=== PATIENT | male | born 1995 | race African-American/Black ===

== ENCOUNTER 2018-03-02 12:56 | Emergency (ER) | payer BC ==
--- NOTE | 2018-03-02 14:49 | EDPHYS ---
Physician Documentation [facility] Name: Kole Lock Age: 22 yrs Sex: Male : 1995 Arrival Date: 03/02/2018 Time: 12:59 Bed 24 Private MD: out of town, doctor ED Physician Jonn Gregorio HPI: 03/02 14:25 This 22 yrs old Black Male presents to ER via Ambulatory with complaints of Sore Throat.snw 14:25 The patient presents with sore throat. The patient describes throat pain as raw, snw scratchy. Onset: The symptoms/episode began/occurred suddenly, yesterday. Associated signs and symptoms: The patient has no apparent associated signs or symptoms. It is unknown whether or not the patient has had similar symptoms in the past. It is unknown whether or not the patient has recently seen a physician. Historical: - Allergies: 14:01 No Known Allergies; aa5 - PMHx: 14: None; aa5 - PSHx: 14: None; aa5 - Immunization history:: Adult Immunizations up to date. - Social history:: Smoking status: Patient uses tobacco products, denies chronic smoking, but will smoke occasionally. - Ebola Screening: : No symptoms or risks identified at this time. ROS: 14:25 Constitutional: Negative for fever, chills, and weight loss, Eyes: Negative for injury, snw pain, redness, and discharge, Neck: Negative for injury, pain, and swelling, Cardiovascular: Negative for chest pain, palpitations, and edema, Respiratory: Negative for shortness of breath, cough, wheezing, and pleuritic chest pain, Abdomen/GI: Negative for abdominal pain, nausea, vomiting, diarrhea, and constipation, Back: Negative for injury and pain, : Negative for injury, bleeding, discharge, and swelling, MS/Extremity: Negative for injury and deformity, Skin: Negative for injury, rash, and discoloration, Neuro: Negative for headache, weakness, numbness, tingling, and seizure, Psych: Negative for depression, anxiety, suicide ideation, homicidal ideation, and hallucinations. 14:25 ENT: Positive for sore throat. Exam: 14:24 Constitutional: This is a well developed, well nourished patient who is awake, alert, snw and in no acute distress. Head/Face: Normocephalic, atraumatic. Eyes: Pupils equal round and reactive to light, extra-ocular motions intact. Lids and lashes normal. Conjunctiva and sclera are non-icteric and not injected. Cornea within normal limits. Periorbital areas with no swelling, redness, or edema. Neck: Trachea midline, no thyromegaly or masses palpated, and no cervical lymphadenopathy. Supple, full range of motion without nuchal rigidity, or vertebral point tenderness. No Meningismus. Chest/axilla: Normal chest wall appearance and motion. Nontender with no deformity. No lesions are appreciated. Cardiovascular: Regular rate and rhythm with a normal S1 and S2. No gallops, murmurs, or rubs. Normal PMI, no JVD. No pulse deficits. Respiratory: Lungs have equal breath sounds bilaterally, clear to auscultation and percussion. No rales, rhonchi or wheezes noted. No increased work of breathing, no retractions or nasal flaring. Abdomen/GI: Soft, non-tender, with normal bowel sounds. No distension or tympany. No guarding or rebound. No evidence of tenderness throughout. Back: No spinal tenderness. No costovertebral tenderness. Full range of motion. Skin: Warm, dry with normal turgor. Normal color with no rashes, no lesions, and no evidence of cellulitis. MS/ Extremity: Pulses equal, no cyanosis. Neurovascular intact. Full, normal range of motion. Neuro: Awake and alert, GCS 15, oriented to person, place, time, and situation. Cranial nerves II-XII grossly intact. Motor strength 5/5 in all extremities. Sensory grossly intact. Cerebellar exam normal. Normal gait. Psych: Awake, alert, with orientation to person, place and time. Behavior, mood, and affect are within normal limits. 14:24 ENT: External ear(s): are unremarkable, Ear canal(s): are normal, TM's: are normal, Nose: is normal, Mouth: is normal, Posterior pharynx: Uvula: erythema, Voice: is normal. Vital Signs: 14:01 BP 142 / 82; Pulse 71; Resp 16 S; Temp 97.0(TE); Pulse Ox 100% on R/A; Weight 114.76 kg aa5 (R); Height 5 ft. 9 in. (175.26 cm) (R); Pain 0/10; 15:10 BP 138 / 99; Pulse 69; Resp 17; Pulse Ox 100% on R/A; tl3 14:01 Body Mass Index 37.36 (114.76 kg, 175.26 cm) aa5 MDM: 14:07 Patient medically screened. snw 14:57 Data reviewed: vital signs, nurses notes. Data interpreted: Pulse oximetry: on room air snw is 100 %. Interpretation: normal. Counseling: I had a detailed discussion with the patient and/or guardian regarding: the historical points, exam findings, and any diagnostic results supporting the discharge/admit diagnosis, the presence of at least one elevated blood pressure reading (>120/80) during this emergency department visit, lab results, the need for outpatient follow up, to return to the emergency department if symptoms worsen or persist or if there are any questions or concerns that arise at home. Special discussion: I have referred the patient to see his PCP for further evaluation of high blood pressure. Based on the history and exam findings, there is no indication for further emergent testing or inpatient evaluation. I discussed with the patient/guardian the need to see the primary care provider for further evaluation of the symptoms. 03/02 13:01 Order name: Strep; Complete Time: 14:47 snw 03/02 14:46 Order name: Throat Culture EDMS Administered Medications: 15:10 Drug: Zithromax 500 mg Route: PO; tl3 15:10 Follow up: Response: No adverse reaction tl3 Disposition: 03/02/18 14:48 Discharged to Home. Impression: Acute pharyngitis, Uvulitis. - Condition is Stable. - Discharge Instructions: Fever, Adult, Hypertension, Pharyngitis. - Prescriptions for Prednisone 20 mg Oral Tablet - take 1 tablet by ORAL route once daily for 5 days; 5 tablet. Zithromax 500 mg Oral Tablet - take 1 tablet by ORAL route once daily for 5 days; 5 tablet. - Work release form, Medication Reconciliation Form, Thank You Letter, Antibiotic Education, Prescription Opioid Use form. - Follow up: Private Physician; When: 2 - 3 days; Reason: Recheck today's complaints, Continuance of care, Re-evaluation by your physician. Follow up: Emergency Department; When: As needed; Reason: Worsening of condition. Addendum: 03/03/2018 16:10 Co-signature as Attending Physician, Jonn Gregorio MD I agree with the assessment and c espinoza plan of care. Signatures: Dispatcher [employer] EDMS Jonn Gregorio MD MD cha Therrien, Shelly, RESIDENTIAL APPRAISER-C RESIDENTIAL APPRAISER-Csnw Courtney Grissom, RN RN aa5 Courtney Avendaño, RN RN tl3 Corrections: (The following items were deleted from the chart) 03/02 14:56 14:48 03/02/2018 14:48 Discharged to Home. Impression: Acute pharyngitis. Condition is snw Stable. Forms are Medication Reconciliation Form, Thank You Letter, Antibiotic Education, Prescription Opioid Use. Follow up: Private Physician; When: 2 - 3 days; Reason: Recheck today's complaints, Continuance of care, Re-evaluation by your physician. Follow up: Emergency Department; When: As needed; Reason: Worsening of condition. snw 15:12 14:56 03/02/2018 14:48 Discharged to Home. Impression: Acute pharyngitis; Uvulitis. tl3 Condition is Stable. Discharge Instructions: Fever, Adult, Hypertension, Pharyngitis. Prescriptions for Prednisone 20 mg Oral Tablet - take 1 tablet by ORAL route once daily for 5 days; 5 tablet. and Forms are Medication Reconciliation Form, Thank You Letter, Antibiotic Education, Prescription Opioid Use, Work release form. Follow up: Private Physician; When: 2 - 3 days; Reason: Recheck today's complaints, Continuance of care, Re-evaluation by your physician. Follow up: Emergency Department; When: As needed; Reason: Worsening of condition. snw
--- NOTE | 2018-03-02 14:49 | ER ---
Nurse's Notes [facility] Name: Kole Lock Age: 22 yrs Sex: Male : 1995 Arrival Date: 03/02/2018 Time: 12:59 Bed 24 Private MD: out of town, doctor Diagnosis: Acute pharyngitis;Uvulitis Presentation: 03/02 13:59 Presenting complaint: Patient states: "I woke up with my tonsils swollen". Pt denies aa5 pain, denies cough. Transition of care: patient was not received from another setting of care. Onset of symptoms was March 02, 2018. Risk Assessment: Do you want to hurt yourself or someone else? Patient reports no desire to harm self or others. Initial Sepsis Screen: Does the patient meet any 2 criteria? No. Patient's initial sepsis screen is negative. Does the patient have a suspected source of infection? No. Patient's initial sepsis screen is negative. Care prior to arrival: None. 13:59 Method Of Arrival: Ambulatory aa5 13:59 Acuity: YOLETTE 4 aa5 Historical: - Allergies: 14:01 No Known Allergies; aa5 - PMHx: 14:01 None; aa5 - PSHx: 14:01 None; aa5 - Immunization history:: Adult Immunizations up to date. - Social history:: Smoking status: Patient uses tobacco products, denies chronic smoking, but will smoke occasionally. - Ebola Screening: : No symptoms or risks identified at this time. Screenin:05 Abuse screen: Denies threats or abuse. Nutritional screening: No deficits noted. aa5 Tuberculosis screening: No symptoms or risk factors identified. Fall Risk None identified. Assessment: 14:05 General: Appears comfortable, Behavior is calm, cooperative. Pain: Denies pain. Neuro: aa5 Level of Consciousness is awake, alert, obeys commands, Oriented to person, place, time, situation. Cardiovascular: Heart tones S1 S2 present Rhythm is regular. Respiratory: Airway is patent Respiratory effort is even, unlabored, Respiratory pattern is regular, symmetrical, Breath sounds are clear bilaterally. Denies cough. GI: No signs and/or symptoms were reported involving the gastrointestinal system. : No signs and/or symptoms were reported regarding the genitourinary system. EENT: Throat is reddened. Derm: Skin is dry, Skin is normal, Skin temperature is warm. Musculoskeletal: Range of motion: intact in all extremities. Vital Signs: 14:01 BP 142 / 82; Pulse 71; Resp 16 S; Temp 97.0(TE); Pulse Ox 100% on R/A; Weight 114.76 kg aa5 (R); Height 5 ft. 9 in. (175.26 cm) (R); Pain 0/10; 15:10 BP 138 / 99; Pulse 69; Resp 17; Pulse Ox 100% on R/A; tl3 14:01 Body Mass Index 37.36 (114.76 kg, 175.26 cm) aa5 ED Course: 12:59 Patient arrived in ED. mr 12:59 out of town, doctor is Private Physician. mr 13:01 [facility]velina Regan F[facility]-C [facility]. snw 13:01 Jonn Gregorio MD is Attending Physician. snw 14:01 Triage completed. aa5 14:01 Arm band placed on. aa5 14:03 Courtney Grissom, RN is Primary Nurse. aa5 14:05 Patient has correct armband on for positive identification. Bed in low position. Call aa5 light in reach. Side rails up X 1. Adult w/ patient. 14:37 No provider procedures requiring assistance completed. aa5 15:12 Patient did not have IV access during this emergency room visit. tl3 Administered Medications: 15:10 Drug: Zithromax 500 mg Route: PO; tl3 15:10 Follow up: Response: No adverse reaction tl3 Outcome: 14:48 Discharge ordered by . snw 15:11 Discharged to home ambulatory. tl3 15:11 Condition: good 15:11 Discharge instructions given to patient, Prescriptions given X 2. 15:12 Patient left the ED. tl3 Signatures: Evelina Regan FNP-C FNP-Jenelle Mireles mr Courtney Grissom, RN RN [facility] Courtney Avendaño RN RN tl3
[2018-03-02] MEDS ORDERED: AZITHROMYCIN 250 MG TAB ONE (15:06)
== END 2018-03-02 15:12 | disposition home or self-care (01) ==
LOC: ER 12:56
DX: K12.2 Cellulitis and abscess of mouth (principal); F17.200 Nicotine dependence, unspecified, uncomplicated
CPT/HCPCS: 87070; 87081; 99283

== ENCOUNTER 2019-02-06 22:40 | Emergency (ER) | payer BC ==
--- NOTE | 2019-02-06 23:31 | ER ---
Nurse's Notes [facility] Name: Kole Lock Age: 23 yrs Sex: Male : 1995 Arrival Date: 02/06/2019 Time: 22:42 Bed 23 Private MD: Diagnosis: Laceration without foreign body of right hand Presentation: 02/06 22:55 Presenting complaint: Patient states: "I was mopping the floor, the mop broke and I cut ca1 the palm of my R hand". Transition of care: patient was not received from another setting of care. Complicating Factors: There are no complicating factors for this patient. Onset of symptoms. Risk Assessment: Do you want to hurt yourself or someone else? Patient reports no desire to harm self or others. Initial Sepsis Screen: Does the patient meet any 2 criteria? No. Patient's initial sepsis screen is negative. Does the patient have a suspected source of infection? Yes:. Care prior to arrival: None. 22:55 Method Of Arrival: Ambulatory ca1 22:55 Acuity: YOLETTE 3 ca1 Triage Assessment: 22:57 General: Appears in no apparent distress. comfortable, Behavior is calm, cooperative, ca1 appropriate for age. Pain: Complains of pain in palm of right hand Pain currently is 6 out of 10 on a pain scale. Quality of pain is described as burning, throbbing, Pain began 1 hour ago. Injury Description: Laceration sustained to palm of right hand is clean, superficial, 2.6 to 7.5 cm long, was sustained 30-60 minutes ago. is bleeding a small amount. Historical: - Allergies: 22:57 No Known Allergies; ca1 - Home Meds: 22:57 None [Active]; ca1 - PMHx: 22:57 Hypertension; ca1 - PSHx: 22:57 None; ca1 - Immunization history:: Adult Immunizations not up to date, Last tetanus immunization: not immunized. - Social history:: Smoking status: Patient uses tobacco products, denies chronic smoking, but will smoke occasionally, Patient uses alcohol, weekly. claims drinking about a 6 pack/day. THC. - Ebola Screening: : No symptoms or risks identified at this time. Screenin:00 Abuse screen: Denies threats or abuse. Denies injuries from another. Nutritional ca1 screening: No deficits noted. Tuberculosis screening: No symptoms or risk factors identified. Fall Risk None identified. Assessment: 23:00 General: Appears in no apparent distress. comfortable, Behavior is calm, cooperative, ca1 appropriate for age. Pain: Complains of pain in palm of right hand Pain currently is 6 out of 10 on a pain scale. Quality of pain is described as burning, throbbing, Pain began 1 hour ago. Neuro: Level of Consciousness is awake, alert, obeys commands, Oriented to person, place, time, situation. Cardiovascular: Heart tones S1 S2 present Capillary refill < 3 seconds Patient's skin is warm and dry. Respiratory: Airway is patent Respiratory effort is even, unlabored, Respiratory pattern is regular, symmetrical, Breath sounds are clear bilaterally. GI: No deficits noted. No signs and/or symptoms were reported involving the gastrointestinal system. : No deficits noted. No signs and/or symptoms were reported regarding the genitourinary system. EENT: No deficits noted. No signs and/or symptoms were reported regarding the EENT system. Derm: Skin is intact, is healthy with good turgor, Skin is pink, warm \\T\\ dry. Musculoskeletal: Circulation, motion, and sensation intact. Capillary refill < 3 seconds, Range of motion: intact in all extremities. Injury Description: Laceration sustained to palm of right hand is clean, superficial, 2.6 to 7.5 cm long, not bleeding, was sustained 30-60 minutes ago. is bleeding no active bleeding noted. 23:53 Reassessment: Patient appears in no apparent distress at this time. Patient is alert, ca1 oriented x 3, equal unlabored respirations, skin warm/dry/pink. Pt ambulated out of the ER with sister. No bleeding noted on wound. Pt able to move hand. Vital Signs: 22:57 BP 148 / 83; Pulse 71; Resp 16 S; Temp 98.9(O); Pulse Ox 97% on R/A; Weight 114.76 kg; ca1 Height 5 ft. 9 in. (175.26 cm); Pain 6/10; 23:53 BP 137 / 77; Pulse 70; Resp 16 S; Temp 98.4(O); Pulse Ox 99% on R/A; ca1 22:57 Body Mass Index 37.36 (114.76 kg, 175.26 cm) ca1 ED Course: 22:42 Patient arrived in ED. es 22:54 Amita Anderson, EBONIE is Primary Nurse. ca1 22:56 Triage completed. ca1 22:57 Arm band placed on right wrist. ca1 23:00 Patient has correct armband on for positive identification. Bed in low position. Call ca1 light in reach. Side rails up X 1. Pulse ox on. NIBP on. Warm blanket given. 23:01 [facility]vel[facility] Reg[facility]C [facility]. snw 23:01 Jay Mcfarlane MD is Attending Physician. snw 23:30 No provider procedures requiring assistance completed. Patient did not have IV access ca1 during this emergency room visit. Dressings: Kerlix X 1; palm of right hand by Samuel Johansen customer care associate. Wound care: to laceration located on palm of right hand was cleaned with Hibiclens, debrided using Betadine scrub, irrigated with normal saline, dressed with Neosporin, band aid, Patient tolerated well. by Samuel Johansen customer care associate. Administered Medications: 23:41 Drug: Tetanus-Diphtheria Toxoid Adult 0.5 ml {Managing Broker: [employer]. Exp: mg2 11/06/2020. Lot #: [id number]. } Route: IM; Site: left deltoid; 23:42 Follow up: Response: No adverse reaction; Medication administered at discharge. mg2 23:41 Drug: Bactroban Ointment 2 % 1 application Route: Topical; Site: right hand; mg2 23:42 Follow up: Response: No adverse reaction; Medication administered at discharge. mg2 Outcome: 23:30 Discharge ordered by . snw 23:55 Discharged to home ambulatory, with family. ca1 23:55 Condition: stable 23:55 Discharge instructions given to patient, Instructed on discharge instructions, follow up and referral plans. medication usage, wound care, Demonstrated understanding of instructions, follow-up care, medications, wound care. 23:56 Patient left the ED. ca1 Signatures: Evelina Regan FNP-C FNP-Dottie Gary Michele, RN RN mg2 Amita Anderson RN RN ca1 Corrections: (The following items were deleted from the chart) 23:00 22:57 BP 148 / 83; Pulse 71bpm; Resp 16bpm; Spontaneous; Pulse Ox 97% RA; Temp 98.9F ca1 Oral; ca1 23:55 23:55 Discharge instructions given to patient, Instructed on discharge instructions, ca1 Demonstrated understanding of instructions, follow-up care, ca1
--- NOTE | 2019-02-06 23:31 | EDPHYS ---
Physician Documentation [facility] Name: Kole Lock Age: 23 yrs Sex: Male : 1995 Arrival Date: 02/06/2019 Time: 22:42 Bed 23 Private MD: ED Physician Jay Mcfarlane HPI: 02/06 23:56 This 23 yrs old Black Male presents to ER via Ambulatory with complaints of Laceration snw To Hand. 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 The laceration(s) is(are) located on the palm of right hand. Onset: The symptoms/episode began/occurred suddenly, just prior to arrival. Associated signs and symptoms: The patient has no apparent associated signs or symptoms. The patient has not experienced similar symptoms in the past. It is unknown whether or not the patient has recently seen a physician. Historical: - Allergies: 22:57 No Known Allergies; ca1 - Home Meds: 22:57 None [Active]; ca1 - PMHx: 22:57 Hypertension; ca1 - PSHx: 22:57 None; ca1 - Immunization history:: Adult Immunizations not up to date, Last tetanus immunization: not immunized. - Social history:: Smoking status: Patient uses tobacco products, denies chronic smoking, but will smoke occasionally, Patient uses alcohol, weekly. claims drinking about a 6 pack/day. THC. - Ebola Screening: : No symptoms or risks identified at this time. ROS: 23:55 Constitutional: Negative for fever, chills, and weight loss, Eyes: Negative for injury, snw pain, redness, and discharge, ENT: Negative for injury, pain, and discharge, Neck: Negative for injury, pain, and swelling, Cardiovascular: Negative for chest pain, palpitations, and edema, Respiratory: Negative for shortness of breath, cough, wheezing, and pleuritic chest pain, Abdomen/GI: Negative for abdominal pain, nausea, vomiting, diarrhea, and constipation, Back: Negative for injury and pain, : Negative for injury, bleeding, discharge, and swelling, MS/Extremity: Negative for injury and deformity, Neuro: Negative for headache, weakness, numbness, tingling, and seizure, Psych: Negative for depression, anxiety, suicide ideation, homicidal ideation, and hallucinations. 23:55 Skin: Positive for laceration(s), of the palm of right hand. Exam: 23:54 Constitutional: This is a well developed, well nourished patient who is awake, alert, snw and in no acute distress. Head/Face: Normocephalic, atraumatic. Eyes: Pupils equal round and reactive to light, extra-ocular motions intact. Lids and lashes normal. Conjunctiva and sclera are non-icteric and not injected. Cornea within normal limits. Periorbital areas with no swelling, redness, or edema. ENT: Nares patent. No nasal discharge, no septal abnormalities noted. Tympanic membranes are normal and external auditory canals are clear. Oropharynx with no redness, swelling, or masses, exudates, or evidence of obstruction, uvula midline. Mucous membranes moist. Neck: Trachea midline, no thyromegaly or masses palpated, and no cervical lymphadenopathy. Supple, full range of motion without nuchal rigidity, or vertebral point tenderness. No Meningismus. Chest/axilla: Normal chest wall appearance and motion. Nontender with no deformity. No lesions are appreciated. Cardiovascular: Regular rate and rhythm with a normal S1 and S2. No gallops, murmurs, or rubs. Normal PMI, no JVD. No pulse deficits. Respiratory: Lungs have equal breath sounds bilaterally, clear to auscultation and percussion. No rales, rhonchi or wheezes noted. No increased work of breathing, no retractions or nasal flaring. Abdomen/GI: Soft, non-tender, with normal bowel sounds. No distension or tympany. No guarding or rebound. No evidence of tenderness throughout. Back: No spinal tenderness. No costovertebral tenderness. Full range of motion. MS/ Extremity: Pulses equal, no cyanosis. Neurovascular intact. Full, normal range of motion. Neuro: Awake and alert, GCS 15, oriented to person, place, time, and situation. Cranial nerves II-XII grossly intact. Motor strength 5/5 in all extremities. Sensory grossly intact. Cerebellar exam normal. Normal gait. Psych: Awake, alert, with orientation to person, place and time. Behavior, mood, and affect are within normal limits. 23:54 Skin: injury, laceration(s), the wound is approximately 2 cm(s), with a depth of .5 cm(s), of the palm of right hand. Vital Signs: 22:57 BP 148 / 83; Pulse 71; Resp 16 S; Temp 98.9(O); Pulse Ox 97% on R/A; Weight 114.76 kg; ca1 Height 5 ft. 9 in. (175.26 cm); Pain 6/10; 23:53 BP 137 / 77; Pulse 70; Resp 16 S; Temp 98.4(O); Pulse Ox 99% on R/A; ca1 22:57 Body Mass Index 37.36 (114.76 kg, 175.26 cm) ca1 MDM: 23:14 Patient medically screened. snw 23:55 Data reviewed: vital signs, nurses notes. Data interpreted: Pulse oximetry: on room air snw is 99 %. Interpretation: normal. Special discussion: I have referred the patient to see his PCP for further evaluation of high blood pressure. I discussed in detail with the patient the higher chance of wound infection based on his presenting history. Based on the history and exam findings, there is no indication for further emergent testing or inpatient evaluation. I discussed with the patient/guardian the need to see the primary care provider for further evaluation of the symptoms. 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 Exp: mg2 11/06/2020. Lot #: [id number]. } Route: IM; Site: left deltoid; 23:42 Follow up: Response: No adverse reaction; Medication administered at discharge. mg2 23:41 Drug: Bactroban Ointment 2 % 1 application Route: Topical; Site: right hand; mg2 23:42 Follow up: Response: No adverse reaction; Medication administered at discharge. mg2 Disposition: 02/06/19 23:30 Discharged to Home. Impression: Laceration without foreign body of right hand. - Condition is Stable. - Discharge Instructions: Hypertension, Laceration Care, Adult, VIS, Tetanus, Diphtheria (Td) - CDC, Managing Your Hypertension. - Prescriptions for Motrin IB 200 mg Oral Tablet - take 1 tablet by ORAL route every 6 hours As needed as needed with food; 40 tablet. - Work release form, Medication Reconciliation Form, Thank You Letter, Antibiotic Education, Prescription Opioid Use form. - Follow up: Private Physician; When: 2 - 3 days; Reason: Recheck today's complaints, Continuance of care, Re-evaluation by your physician. Follow up: Emergency Department; When: As needed; Reason: Worsening of condition. Signatures: Evelina Regan, SUNNI-C MONOGRAM MACHINE OPERATOR-Csnw Kalpesh Sullivan, RN RN mg2 Amita Anderson RN RN ca1 Corrections: (The following items were deleted from the chart) 23:56 23:30 02/06/2019 23:30 Discharged to Home. Impression: Laceration without foreign body ca1 of right hand. Condition is Stable. Forms are Medication Reconciliation Form, Thank You Letter, Antibiotic Education, Prescription Opioid Use. Follow up: Private Physician; When: 2 - 3 days; Reason: Recheck today's complaints, Continuance of care, Re-evaluation by your physician. Follow up: Emergency Department; When: As needed; Reason: Worsening of condition. snw
[2019-02-06] MEDS ORDERED: TETANUS & DIPHTHERIA TOX,ADULT 0.5 ML VIAL ONE (23:53)
[2019-02-06] MEDS ORDERED: MUPIROCIN 2% OINT 22GM TUBE TOP ONE (23:53)
== END 2019-02-06 23:56 | disposition home or self-care (01) ==
LOC: ER 22:40
DX: S61.411A Laceration without foreign body of right hand, initial encounter (principal); W45.8XXA Other foreign body or object entering through skin, initial encounter; Y93.E5 Activity, floor mopping and cleaning; Y92.89 Other specified places as the place of occurrence of the external cause; Y99.8 Other external cause status; Z72.0 Tobacco use; Z23 Encounter for immunization; I10 Essential (primary) hypertension
CPT/HCPCS: 90471; 90714; 99284

== ENCOUNTER 2021-03-10 00:02 | Emergency (ER) | payer BC ==
--- OUTSIDE RECORDS SUMMARY | 2021-03-10 00:07 | XMS REPORT | Continuity of Care Document ---
:1995 Author Organization [facility] t Address [address] [place] [address] Care Team Providers Name Role Phone Marvin Upton Attending Clinician Marvin Upton Admitting Clinician [phone] Problems Condition Condition Condition Status Onset Resolution Last Treating Co mments Source Name Details Category Date Date Treatment Clinician Date ACUTE Diagnosis Active 2018-092019-09-01 Mem oria APPENDICIT 2-16 21:42:00 l IS ACUTE 05:27: [place] APPENDICIT 00 IS Active 9 [facility] [address], Diagnosis Active 2013-2013-10-20 Mem oria 70402, 2-06 11:14:00 l LEFT FIST 21957, 00:00: Lori nn METACARPAL 20061, 00 FRACT LEFT FIST METACARPAL FRACT Active 10/15/2013 [facility] [place] Fracture Problem Active 2019-08-26 Mem oria of 23:27:42 l metacarpal Fracture He [facility] bone of (disorder) metacarpal bone (disorder) Active Problem 08/26/2019 [facility] Allergies, Adverse Reactions, Alerts Allergy Allergy Status Severity Reaction(s) Onset Inactive Treating Comm ents Source Name Type Date Date Clinician NKFA NKFA Active Memoria l [place] No Known No Known Active Memori a Medicati Medicati l on on [place] Domingo Allergfani s s Social History Smoking Status Start Date Stop Date Source Social History [facility] Medications Ordered Filled Start Stop Current Ordering Indication Dosage Frequency Signature Comments Components Source Medication Medication Date Date Medication? Clinician (SIG) Name Name tramadol 2018-09 No 1 tab, Memoria hydrochlori 2-17 Route: PO, l de 50 MG 00:00: Drug form: [place] Oral Tablet 00 TAB, Q6H, Dosing Weight 106.818, kg, Start date: 08/24/19 18:00:00 [employer], Duration: 30 day, Stop date: 09/23/19 12:00:00 [employer] Motrin 2019 No 400 mg, Memoria 2-17 Route: PO, l 00:00: Drug form: [place] 00 TAB, Q6H, Dosing Weight 106.818, kg, Start date: 08/24/19 18:00:00 [employer], Duration: 30 day, Stop date: 09/23/19 12:00:00 [employer] glycopyrrol 2018-09 No Route: IV, Memoria ate (ANES) 2-16 Drug form: l 22:38: INJ, ONCE, Stop date: 08/24/19 16:38:00 [employer] neostigmine 2018-09 No Route: IV, Memoria (ANES) 2-16 Drug form: l 22:38: INJ, ONCE, Stop date: 08/24/19 16:38:00 [employer] dexamethaso 2018-09 No Route: IV, Memoria ne (ANES) 2-16 Drug form: l 22:24: INJ, ONCE, Stop date: 08/24/19 16:24:00 [employer] ondansetron 2018-09 No Route: IV, Memoria (ANES) 2-16 Drug form: l 22:24: INJ, ONCE, Stop date: 08/24/19 16:24:00 [employer] acetaminoph 2018-09 Yes 650 mg = 2 Memoria en 325 mg 2-16 tab, PO, l oral tablet 22:22: Q6H, PRN He rmann 00 for fever, X 3 day, # 24 tab, 0 Refill(s) Docusate 2018-09 Yes 100 mg = 1 Mem oria Sodium 100 2-16 cap, PO, l MG Oral 22:22: BID, PRN Woody n Capsule 00 Constipati [Colace] on, # 20 cap, 0 Refill(s) Motrin 600 2018-09 Yes 600 mg = 1 M emoria mg oral 2-16 tab, PO, l tablet 22:22: Q6H, X 3 [place] 00 day, # 12 tab, 0 Refill(s) tramadol 2018-09 No 50 mg = 1 Kurt katie hydrochlori 2-16 tab, PO, l de 50 MG 22:22: Q4H, X 2 Lori nn Oral Tablet 00 day, # 12 tab, 0 Refill(s) cefOXitin 2018-09 No Route: IV, Me moria (ANES) 2-16 Drug form: l 22:18: INJ, ONCE, Stop date: 08/24/19 16:18:00 [employer] midazolam 2018-09 No Route: IV, Me moria (ANES) 2-16 Drug form: l 22:18: SOLN, ONCE, Stop date: 08/24/19 16:18:00 [employer] fentaNYL 2018-09 No Route: IV, Mem oria (ANES) 2-16 Drug form: l 22:18: INJ, ONCE, Stop date: 08/24/19 16:18:00 [employer] propofol 2018-09 No Route: IV, Mem oria (ANES) 2-16 Drug form: l 22:18: INJ, ONCE, Stop date: 08/24/19 16:18:00 [employer]ICE [employer] rocuronium 2018-09 No Route: IV, M emoria (ANES) 2-16 Drug form: l 22:18: INJ, ONCE, Stop date: 08/24/19 16:18:00 [employer] Lactated 2018-09 No Route: IV, Mem oria Ringers 2-16 Total l Injection 21:46: Volume: Lori nn IV (ANES) 00 1,000, 1000 mL Start date: 08/24/19 15:46:00 [employer], Stop date: 08/24/19 16:46:00 [employer] Lactated 2018-09 No 1,000 mL, Kurt katie Ringers IV 2-16 Rate: 40 l 1000 mL 20:32: ml/hr, Infuse over: 25 hr, Route: IV, Dosing Weight 106.818 kg, Total Volume: 1,000, Start date: 08/24/19 14:32:00 [employer], Duration: 30 day, Stop date: 09/23/19 14:31:00 [employer]ICE [employer]IDENT [employer]OMER [employer], 2.31, m2, 0 Tylenol 2018-09 No Notes: Do Memor ia 2-16 not exceed l 18:00: 4 gm/day. [place] (Same as: Tylenol) NS 1,000 mL 2018-09 No 1,000 mL, M emoria 2-16 Rate: 100 l 14:01: ml/hr, Infuse over: 10 hr, Route: IV, Dosing Weight 75 kg, Total Volume: 1,000, Start date: 08/24/19 8:01:00 [employer], Duration: 30 day, Stop date: 09/23/19 8:00:00 [employer]ER [employer]ICE, 1.87, m2, 0 Morphine 2018-09 No 2 mg, 1 Memori a 2-16 mL, Route: l 14:01: IVP, Drug form: SOLN, Q3H, Dosing Weight 75, kg, PRN Pain Score 7-10, Start date: 08/24/19 8:01:00 [employer]ICE [employer], Duration: 30 day, Stop date: 09/23/19 8:00:00 [employer]ICE [employer]IDENT [employer], 0 Zofran 2018-09 No Notes: Memoria 2-16 (Same as: l 14:01: Zofran) [place] 00 MEDICATION WASTE Product Size: 4 mg Product Wasted: ___ mg Cefoxitin 2018-09 No Notes: Memori a 2-16 (Same As: l 14:00: Mefoxin) [place] 00 MEDICATION WASTE Product Size: 2000 mg Product Wasted: ___ mg ondansetron No Cristhian 4 mg, 2 Memoria 2-11 Franco mL, Route: l 19:48: Sandy IVP, Drug Lori nn form: INJ, ONCE, Dosing Weight 75, kg, PRN Nausea & Vomiting, Start date: 10/20/13 13:48:00(S hernando as: Zofran) morphine No Cristhian 2 mg, 0.25 Memoria Sulfate 2-11 Franco mL, Route: l 19:48: Sandy IVP, Drug Lori nn 00 form: INJ, Q5Min, Dosing Weight 75, kg, PRN Pain Score 4-6, Start date: 10/20/13 13:48:00, Duration: 5 doses or times, Stop date: Limited # of times(Same as: MORPhine Sulfate) naloxone No Cristhian 0.04 mg, Me moria 2-11 Franco 0.1 mL, l 19:48: Sandy Route: IVP, Drug form: INJ, Q2MIN, Dosing Weight 75, kg, PRN Narcotic Reversal, Start date: 10/20/13 13:48:00, Duration: 8 doses or times, Stop date: Limited # of timesSame as Narcan flumazenil 2013- No Cristhian 0.2 mg, 2 Memoria 2-11 Franco mL, Route: l 19:48: Sandy IVP, Drug form: INJ, PRN, Dosing Weight 75, kg, PRN Benzodiaze pine Reversal, Initial dose, Start date: 10/20/13 13:48:00, Duration: 30 day, Stop date: 11/19/13 14:47:00(S hernando as: Romazicon) meperidine No Cristhian 12.5 mg, Memoria 2-11 Franco 0.25 mL, l 19:48: Sandy Route: IVP, Drug form: INJ, Q30Min, Dosing Weight 75, kg, PRN Other -See Comment, For shivering, Start date: 10/20/13 13:48:00, Duration: 2 doses or times, Stop date: Limited # of times(Same As: Demerol) hydromorpho No Cristhian 0.5 mg, Memoria ne 2-11 [place] 0.25 mL, l 19:48: Sandy Route: IVP, Drug form: INJ, Q5Min, Dosing Weight 75, kg, PRN Pain Score 7-10, Start date: 10/20/13 13:48:00, Duration: 4 doses or times, Stop date: Limited # of times(Same as: Dilaudid) lidocaine No Roberth 0.5 mL, Mem oria 1% 2-11 Malik Walton Route: l 18:00: INTRADERM, Dosing Weight 75, kg, ONCALL, Start date: 10/20/13 12:00:00, Duration: 1 doses or times ceFAZolin No Michael 2 gm, 100 Me moria 2-11 Travis Dice mL, Route: l 17:40: Jr IVPB, Drug form: INJ, ONCE, Dosing Weight 75, kg, Start date: 10/20/13 11:40:00, Stop date: 10/20/13 11:40:00Sa me as: Ancef Lactated 2013- No Roberth 1,000 mL, Me moria Ringers 10-20 Malik Walton Rate: 25 l Injection 17:39: ml/hr, Woody n IV 1,000 mL 00 Infuse over: 40 hr, Route: IV, Dosing Weight 75 kg, Total Volume: 1,000, Start date: 10/20/13 11:39:00, Duration: 30 day, Stop date: 11/19/13 11:38:00 Vital Signs Vital Name Observation Time Observation Value Comments Source Respitory Rate 2019-08-24 23:05:00 Memori al [place] Systolic (mm Hg) 2019-08-24 23:05:00 Kurt rial [place] Diastolic (mm Hg) 2019-08-24 23:05:00 Mem orial [place] Respitory Rate 2019-08-24 22:52:00 Memori al [place] Systolic (mm Hg) 2019-08-24 22:52:00 Kurt rial [place] Diastolic (mm Hg) 2019-08-24 22:52:00 Mem orial [place] Respitory Rate 2019-08-24 22:39:00 Memori al [place] Systolic (mm Hg) 2019-08-24 22:39:00 Kurt rial [place] Diastolic (mm Hg) 2019-08-24 22:39:00 Mem orial [place] Height 2019-08-24 20:32:00 175.26 cm [facility] [place] Weight 2019-08-24 20:32:00 [facility] [place] BMI Calculated 2019-08-24 20:32:00 Memori al [place] Temperature Oral (F) 2019-08-24 16:22:00 98.5 F [facility] [place] Heart Rate 2019-08-24 16:22:00 [facility] [place] Respitory Rate 2013-10-20 20:45:00 Memori al [place] Heart Rate 2013-10-20 20:45:00 [facility] [place] Systolic (mm Hg) 2013-10-20 20:45:00 Kurt rial [place] Diastolic (mm Hg) 2013-10-20 20:45:00 Mem orial [place] Systolic (mm Hg) 2013-10-20 20:30:00 Kurt rial [place] Diastolic (mm Hg) 2013-10-20 20:30:00 Mem orial [place] Respitory Rate 2013-10-20 20:30:00 Memori al [place] Diastolic (mm Hg) 2013-10-20 20:15:00 Mem orial [place] Systolic (mm Hg) 2013-10-20 20:15:00 Kurt rial [place] Respitory Rate 2013-10-20 20:15:00 Memori al [place] Heart Rate 2013-10-20 17:22:00 [facility] [place] Temperature Oral (F) 2013-10-20 17:22:00 98.9 F [facility] [place] Height 2013-10-19 17:00:00 165.1 cm [facility] [place] Weight 2013-10-19 17:00:00 [facility] [place] Procedures This patient has no known procedures. Encounters Start End Encounter Admission Attending Care Care Encounter Source Date/Time Date/Time Type Type Clinicians Facility Department ID 2019-08-24 2019-08-24 Outpatient [id number] 07:35:00 20:38:00 Luis Christiansoner Marvin 2019-08-24 2019-08-24 Outpatient U [facility] QUIRINO [id number] [facility] 07:35:00 07:35:00 2013-10-20 2013-10-20 Outpatient [place] [id number] [facility] 10:28:00 15:31:00 [place] [facility] Results Test Description Test Time Test Comments Results Result Sourc e Comments BLOOD BANK RESULTS 2019-08-24 Negative Memori al 15:08:00 (08/24/19 9:08 [place] AM)
--- NOTE | 2021-03-10 00:44 | EDPHYS ---
Physician Documentation [facility] Name: Kole Lock Age: 25 yrs Sex: Male : 1995 Arrival Date: 03/10/2021 Time: 00:07 Bed 15 Private MD: ED Physician Brain Fajardo HPI: 03/10 00:38 This 25 yrs old Black Male presents to ER via Ambulatory with complaints of Nausea. rn 00:38 The patient presents to the emergency department with nausea. Onset: The rn symptoms/episode began/occurred last night. Possible causes: Reports had too much to drink last night, woke up with nausea, felt better, no current abd pain/fever/vomiting. Feels fine, even went out back to beach today. Came in because missed work and needs work excuse. No acute complaints currently, just wants note. 00:38 The symptoms are aggravated by alcohol, The symptoms are alleviated by food . rn Associated signs and symptoms: Pertinent negatives: abdominal pain, diarrhea, fever, GI bleeding, nausea, vomiting. Severity of symptoms: At their worst the symptoms were mild in the emergency department the symptoms have improved. It is unknown whether or not the patient has had similar symptoms in the past. The patient has not recently seen a physician. Historical: - Allergies: 00:27 No Known Allergies; jm8 - Home Meds: 00:27 None [Active]; jm8 - PMHx: 00:27 Hypertension; jm8 - PSHx: 00:27 None; jm8 - Immunization history:: Adult Immunizations up to date, Client reports having NOT received the Covid vaccine. - Social history:: Smoking status: Patient reports use of chewing tobacco. - Family history:: not pertinent. - Hospitalizations: : No recent hospitalization is reported. ROS: 00:38 Constitutional: Negative for fever, chills, and weight loss, Eyes: Negative for injury, rn pain, redness, and discharge, Neck: Negative for injury, pain, and swelling, Cardiovascular: Negative for chest pain, palpitations, and edema, Respiratory: Negative for shortness of breath, cough, wheezing, and pleuritic chest pain, Abdomen/GI: Negative for abdominal pain, vomiting, diarrhea, and constipation, Back: Negative for injury and pain, : Negative for injury, bleeding, discharge, and swelling, MS/Extremity: Negative for injury and deformity, Skin: Negative for injury, rash, and discoloration, Neuro: Negative for headache, weakness, numbness, tingling, and seizure. Exam: 00:38 Constitutional: This is a well developed, well nourished patient who is awake, alert, rn and in no acute distress. Head/Face: Normocephalic, atraumatic. Eyes: Periorbital areas with no swelling, redness, or edema. Cardiovascular: Regular rate and rhythm. No pulse deficits. Respiratory: No increased work of breathing, no retractions or nasal flaring. Abdomen/GI: soft, non-tender Skin: Warm, dry MS/ Extremity: Pulses equal, no cyanosis. Neurovascular intact. Full, normal range of motion. Equal circumference. Neuro: Awake and alert, GCS 15 Vital Signs: 00:24 BP 140 / 99; Pulse 94; Resp 16; Temp 98.3; Pulse Ox 97% on R/A; Weight 115.21 kg; 8 Height 5 ft. 8 in. (172.72 cm); Pain 0/10; 00:24 Body Mass Index 38.62 (115.21 kg, 172.72 cm) [facility] MDM: 00:16 Patient medically screened. rn 00:38 Differential diagnosis: hangover, ETOH intoxication, dehydration. Data reviewed: vital rn signs, nurses notes, and as a result, I will discharge patient. Counseling: I had a detailed discussion with the patient and/or guardian regarding: the historical points, exam findings, and any diagnostic results supporting the discharge/admit diagnosis, the need for outpatient follow up, to return to the emergency department if symptoms worsen or persist or if there are any questions or concerns that arise at home. Response to treatment: the patient's symptoms have resolved after treatment, the patient's condition has returned to base line, the patient is now symptom free, and as a result, I will discharge patient. Special discussion: I discussed with the patient/guardian in detail that at this point there is no indication for admission to the hospital. It is understood, however, that if the symptoms persist or worsen the patient needs to return immediately for re-evaluation. ED course: No need for emergent w/u, patient without acute complaints, just here for work excuse. Medically screened, patient chooses to leave. . Administered Medications: No medications were administered Disposition Summary: 03/10/21 00:43 Discharge Ordered Location: Home as Medical Screen rn Problem: new rn Symptoms: have improved rn Condition: Stable rn Diagnosis - Person with feared health complaint in whom no diagnosis is made rn Followup: rn - With: Private Physician - When: As needed - Reason: Recheck today's complaints, Re-evaluation by your physician Forms: - Medication Reconciliation Form rn - Thank You Letter rn - Antibiotic inspector government property - Prescription Opioid Use rn Signatures: Brain Fajardo MD MD rn Malcaba, Joseph, RN RN jm8
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
[2021-03-10 00:50] VITALS: BP 140/99; TEMP 98.3; O2SAT 97
== END 2021-03-10 00:45 | disposition home or self-care (01) ==
LOC: ER 00:02
DX: Z02.79 Encounter for issue of other medical certificate (principal)
CPT/HCPCS: 99281

== ENCOUNTER 2022-02-14 18:24 | Emergency (ER) | payer OTHER ==
--- OUTSIDE RECORDS SUMMARY | 2022-02-14 18:26 | XMS REPORT | Continuity of Care Document ---
:1995 Author Organization [facility] t Address [address] [place] [address] Care Team Providers Name Role Phone Unavailable Unavailable Unavailable Problems This patient has no known problems. Allergies, Adverse Reactions, Alerts This patient has no known allergies or adverse reactions. Medications This patient has no known medications. Procedures This patient has no known procedures. Encounters Start End Encounter Admission Attending Care Care Encounter Source Date/Time Date/Time Type Type Clinicians Facility Department ID 2019-08-24 2019-08-24 Outpatient [facility] [id number] 07:35:00 07:35:00 Results This patient has no known results.
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
[2022-02-14 20:48] VITALS: TEMP 97.8
[2022-02-14 20:50] VITALS: BP 146/85; O2SAT 100
== END 2022-02-14 20:43 | disposition home or self-care (01) ==
LOC: ER 18:24
DX: M54.2 Cervicalgia (principal); V49.50XA Passenger injured in collision with unspecified motor vehicles in traffic accident, initial encounter; I10 Essential (primary) hypertension
CPT/HCPCS: 70450; 72125; 99284

== ENCOUNTER 2022-03-19 20:03 | Emergency (ER) | payer BC, SELFPAY ==
--- NOTE | 2022-03-19 22:10 | ER ---
Nurse's Notes [facility] Name: Kole Lock Age: 26 yrs Sex: Male : 1995 Arrival Date: 03/19/2022 Time: 20:10 Bed Waiting Private MD: Diagnosis: ED Course: 03/19 20:10 Patient arrived in ED. jj6 Administered Medications: No medications were administered Outcome: 22:09 Patient left the ED. kd3 Signatures: Shellie Lira Kyli, RN RN kd3
== END 2022-03-19 22:09 | disposition left against medical advice (07) ==
LOC: ER 20:03
DX: Z02.9 Encounter for administrative examinations, unspecified (principal)

== ENCOUNTER 2022-04-12 17:40 | Emergency (ER) | payer SELFPAY ==
--- OUTSIDE RECORDS SUMMARY | 2022-04-12 17:42 | XMS REPORT | Continuity of Care Document ---
:1995 Author Organization [facility] t Address [address] [place] [address] Care Team Providers Name Role Phone Unavailable [...]
--- NOTE | 2022-04-12 19:55 | ER ---
Nurse's Notes [facility] Name: Kole Lock Age: 26 yrs Sex: Male : 1995 Arrival Date: 04/12/2022 Time: 17:42 Bed 25 Private MD: Diagnosis: SARS-associated coronavirus as the cause of diseases classified elsewhere Presentation: 04/12 18:16 Chief complaint: Patient states: H/A, body aches, loss of appetite for 4 days. ld1 Coronavirus screen: Vaccine status: Patient reports being unvaccinated. Ebola Screen: No symptoms or risks identified at this time. Initial Sepsis Screen: Does the patient meet any 2 criteria? No. Patient's initial sepsis screen is negative. Does the patient have a suspected source of infection? No. Patient's initial sepsis screen is negative. Risk Assessment: Do you want to hurt yourself or someone else? Patient reports no desire to harm self or others. Onset of symptoms was April 09, 2022. 18:16 Method Of Arrival: Ambulatory ld1 18:16 Acuity: YOLETTE 4 ld1 Triage Assessment: 18:16 General: Appears in no apparent distress. comfortable, Behavior is calm, cooperative, ld1 appropriate for age. Pain: Denies pain. Neuro: Level of Consciousness is awake, alert, obeys commands, Oriented to person, place, time, situation. Cardiovascular: Capillary refill < 3 seconds Patient's skin is warm and dry. Respiratory: Airway is patent Respiratory effort is even, unlabored. Historical: - Allergies: 18:16 No Known Allergies; ld1 - PMHx: 18:16 Hypertension; ld1 - PSHx: 18:16 Appendectomy; Finger reconstruction; ld1 - Immunization history:: Adult Immunizations not up to date. - Social history:: Smoking status: Patient denies any tobacco usage or history of. Patient uses alcohol, occasionally. Screenin:22 Abuse screen: Denies threats or abuse. Denies injuries from another. Nutritional ld1 screening: No deficits noted. Tuberculosis screening: No symptoms or risk factors identified. Fall Risk None identified. Assessment: 19:11 General: Appears in no apparent distress. Behavior is calm, cooperative. Pain: Pain hb currently is 3 out of 10 on a pain scale. Neuro: Level of Consciousness is awake, alert, obeys commands, Oriented to person, place, time, situation. Cardiovascular: Patient's skin is warm and dry. Respiratory: Respiratory effort is even, unlabored, Respiratory pattern is regular, symmetrical. GI: Reports anorexia. : No signs and/or symptoms were reported regarding the genitourinary system. EENT: No signs and/or symptoms were reported regarding the EENT system. Derm: Skin is pink, warm \T\ dry. Musculoskeletal: Reports body aches, headache. Vital Signs: 18:15 BP 157 / 100; Pulse 78; Resp 16; Temp 97.1; Pulse Ox 100% on R/A; Weight 121.56 kg; ld1 Height 5 ft. 9 in. (175.26 cm); Pain 0/10; 18:15 Body Mass Index 39.58 (121.56 kg, 175.26 cm) ld1 ED Course: 17:42 Patient arrived in ED. mr 17:48 [facility] Sawyer [facility]C [facility] snw 17:48 Daniel Mcdonald MD is Attending Physician. snw 18:16 Arm band placed on left wrist. ld1 18:19 Triage completed. ld1 19:04 Lore Allen, RN is Primary Nurse. hb 19:12 Patient has correct armband on for positive identification. hb 20:24 No provider procedures requiring assistance completed. Patient did not have IV access tw5 during this emergency room visit. Administered Medications: No medications were administered Medication: 18:30 VIS not applicable for this client. eh3 Outcome: 19:55 Discharge ordered by MD. snw 20:24 Discharged to home ambulatory. tw5 20:24 Condition: stable 20:24 Discharge instructions given to patient, Instructed on discharge instructions, follow up and referral plans. medication usage, Demonstrated understanding of instructions, follow-up care, medications, Prescriptions given X 2. 20:24 Patient left the ED. tw5 Signatures: Evelina Sawyer FNP-C WIRE WRAPPING MACHINE OPERATOR-Dioni PenaSuly mr Lore Allen RN RN Renetta Kilgore RN RN ld1 Frances Canseco tw5 Ana Redmond eh3 Corrections: (The following items were deleted from the chart) 18:21 18:15 Pulse 78bpm; Resp 16bpm; Pulse Ox 100% RA; Temp 97.1F; 121.56 kg; Height 5 ft. 9 ld1 in.; BMI: 39.5; Pain 0/10; ld1
--- NOTE | 2022-04-12 19:55 | EDPHYS ---
Physician Documentation [facility] Name: Kole Lock Age: 26 yrs Sex: Male : 1995 Arrival Date: 04/12/2022 Time: 17:42 Bed 25 Private MD: ED Physician Daniel Mcdonald HPI: 04/12 19:10 This 26 yrs old Black Male presents to ER via Ambulatory with complaints of Flu snw Symptoms, Decreased Appetite. 19:10 The patient or guardian reports flu symptoms, low-grade fever, myalgias, no appetite. snw Onset: The symptoms/episode began/occurred gradually, 4 day(s) ago, and became persistent. Modifying factors: The symptoms are alleviated by nothing. Associated signs and symptoms: Pertinent positives: sore throat. Severity of symptoms: At their worst the symptoms were mild moderate. The patient has not experienced similar symptoms in the past. The patient has not recently seen a physician. Historical: - Allergies: 18:16 No Known Allergies; ld1 - PMHx: 18:16 Hypertension; ld1 - PSHx: 18:16 Appendectomy; Finger reconstruction; ld1 - Immunization history:: Adult Immunizations not up to date. - Social history:: Smoking status: Patient denies any tobacco usage or history of. Patient uses alcohol, occasionally. ROS: 19:09 ENT: Negative for injury, pain, and discharge. snw 19:09 Neck: Negative for injury, pain, and swelling, Cardiovascular: Negative for chest pain, palpitations, and edema, Respiratory: Negative for shortness of breath, cough, wheezing, and pleuritic chest pain, Abdomen/GI: Negative for abdominal pain, nausea, vomiting, diarrhea, and constipation, Back: Negative for injury and pain, : Negative for injury, bleeding, discharge, and swelling, MS/Extremity: Negative for injury and deformity, Skin: Negative for injury, rash, and discoloration, Neuro: Negative for headache, weakness, numbness, tingling, and seizure, Psych: Negative for depression, anxiety, suicide ideation, homicidal ideation, and hallucinations. 19:09 Constitutional: Positive for body aches, fatigue, malaise. 19:09 ENT: Positive for nasal discharge, sore throat. Exam: 19:08 Constitutional: This is a well developed, well nourished patient who is awake, alert, snw and in no acute distress. Head/Face: Normocephalic, atraumatic. Eyes: Pupils equal round and reactive to light, extra-ocular motions intact. Lids and lashes normal. Conjunctiva and sclera are non-icteric and not injected. Cornea within normal limits. Periorbital areas with no swelling, redness, or edema. ENT: Nares patent. No nasal discharge, no septal abnormalities noted. Tympanic membranes are normal and external auditory canals are clear. Oropharynx with no redness, swelling, or masses, exudates, or evidence of obstruction, uvula midline. Mucous membranes moist. Neck: Trachea midline, no thyromegaly or masses palpated, and no cervical lymphadenopathy. Supple, full range of motion without nuchal rigidity, or vertebral point tenderness. No Meningismus. Chest/axilla: Normal chest wall appearance and motion. Nontender with no deformity. No lesions are appreciated. Cardiovascular: Regular rate and rhythm with a normal S1 and S2. No gallops, murmurs, or rubs. Normal PMI, no JVD. No pulse deficits. Respiratory: Lungs have equal breath sounds bilaterally, clear to auscultation and percussion. No rales, rhonchi or wheezes noted. No increased work of breathing, no retractions or nasal flaring. Abdomen/GI: Soft, non-tender, with normal bowel sounds. No distension or tympany. No guarding or rebound. No evidence of tenderness throughout. Back: No spinal tenderness. No costovertebral tenderness. Full range of motion. Skin: Warm, dry with normal turgor. Normal color with no rashes, no lesions, and no evidence of cellulitis. MS/ Extremity: Pulses equal, no cyanosis. Neurovascular intact. Full, normal range of motion. Neuro: Awake and alert, GCS 15, oriented to person, place, time, and situation. Cranial nerves II-XII grossly intact. Motor strength 5/5 in all extremities. Sensory grossly intact. Cerebellar exam normal. Normal gait. Psych: Awake, alert, with orientation to person, place and time. Behavior, mood, and affect are within normal limits. Vital Signs: 18:15 BP 157 / 100; Pulse 78; Resp 16; Temp 97.1; Pulse Ox 100% on R/A; Weight 121.56 kg; ld1 Height 5 ft. 9 in. (175.26 cm); Pain 0/10; 18:15 Body Mass Index 39.58 (121.56 kg, 175.26 cm) ld1 MDM: 18:33 Patient medically screened. snw 19:11 Data reviewed: vital signs, nurses notes. Data interpreted: Pulse oximetry: on room air snw is 100 %. Interpretation: normal. Counseling: I had a detailed discussion with the patient and/or guardian regarding: the historical points, exam findings, and any diagnostic results supporting the discharge/admit diagnosis, the presence of at least one elevated blood pressure reading (>120/80) during this emergency department visit, lab results. Admission orders: after a detailed discussion of the patient's condition and case, the admit orders are written by me. 20:10 Special discussion: I have referred the patient to see his PCP for further evaluation snw of high blood pressure. 04/12 18:35 Order name: Flu; Complete Time: 19:11 eh3 04/12 18:35 Order name: COVID-19 SARS RT PCR (Document "Date of Onset" if Symptomatic); Complete eh3 Time: 20:07 04/12 20:09 Interpretation: Abnormal: SARSCOV2 RT PCR POSITIVE. snw Administered Medications: No medications were administered Disposition: 04/13 09:09 Co-signature as Attending Physician, Daniel Mcdonald MD I agree with the assessment and kdr plan of care. Disposition Summary: 04/12/22 19:55 Discharge Ordered Location: Home snw Condition: Stable snw Diagnosis - SARS-associated coronavirus as the cause of diseases classified elsewhere snw Followup: snw - With: Emergency Department - When: As needed - Reason: Worsening of condition Followup: snw - With: Private Physician - When: 1 week - Reason: Recheck today's complaints, Continuance of care, Re-evaluation by your physician Discharge Instructions: - Discharge Summary Sheet snw - Hypertension, Adult snw - COVID-19 snw - 10 Things You Can Do to Manage Your COVID-19 Symptoms at Home - [facility] snw - Managing Your Hypertension snw - Form - Blood Pressure Record Sheet snw - Prevent the Spread of COVID-19 if You Are Sick - [facility] snw Forms: - Medication Reconciliation Form snw - Thank You Letter snw - Antibiotic Education snw - Prescription Opioid Use snw - Work release form snw Prescriptions: - Zithromax 500 mg Oral Tablet - take 1 tablet by ORAL route once daily for 5 days; 5 tablet; Refills: 0, snw Product Selection Permitted - NAC (N-acetylcysteine) 600mg capsules - take 2 capsule by ORAL route 2 times per day; 100 capsule; Refills: 0, Product snw Selection Permitted Signatures: Dispatcher [employer] EDMO Daniel Mcdonald MD MD kdr Waters, Shelly, [employer] RE[employer]ODUCER-C [employer] RE[employer]UCER-[employer]cer[employer] Renetta Kilgore, RN RN ld1
[2022-04-12 22:31] VITALS: BP 157/100; TEMP 97.1; O2SAT 100
== END 2022-04-12 20:24 | disposition home or self-care (01) ==
LOC: ER 17:40
DX: U07.1 COVID-19 (principal); I10 Essential (primary) hypertension
CPT/HCPCS: 87804; 99282; U0003